=== PATIENT | male | born 1955 | race Caucasian/White ===

== ENCOUNTER 2017-12-24 23:58 | Emergency (ER) | payer BC ==
[~2017-12-24] VITALS: Ht 170.2 cm; Wt 55.3 kg
[2017-12-25 02:10] LABS: CALCIUM 9.1 mg/dL (8.5-10.1); CARBON DIOXIDE 27.9 mmol/L (21-32); CREATININE SERUM 0.8 mg/dL (0.7-1.3); GFR1 > 60 mL/min; GLUCOSE SERUM 117 mg/dL (74-106); POTASSIUM SERUM 3.7 mmol/L (3.5-5.1); SODIUM SERUM 146 mmol/L (136-145)
[2017-12-25 02:15] LABS: microscopic required? NO
[2017-12-25 02:16] LABS: ALBUMIN 3.6 g/dL (3.4-5.0); ALKALINE PHOSPHATASE 53 U/L (46-116); ALT/SGPT 36 U/L (16-63); AST/SGOT 28 U/L (15-37); BILIRUBIN TOTAL 1.04 mg/dL (0.20-1.00); CHLORIDE SERUM 109 mmol/L (98-107); LIPASE 197 IU/L (73-393); TOTAL PROTEIN, SERUM 6.7 g/dL (6.4-8.2)
[2017-12-25 02:28] LABS: urine erythrocyte NEGATIVE (NEGATIVE)
[2017-12-25 02:29] LABS: BASOPHIL % 0.6 % (0-2); PLATELET COUNT 165 x10^3mcL (130-400); RED CELL DISTRIBUTION WIDTH 12.9 % (11.5-14.5)
[2017-12-25 04:22] VITALS: BP 128/74
== END 2017-12-25 04:22 | disposition home or self-care (01) ==
LOC: ED 23:58
PROVIDERS: Emergency Medicine
DX: I10 Essential (primary) hypertension (principal); M79.1 Myalgia; E86.0 Dehydration; R42 Dizziness and giddiness; M79.605 Pain in left leg; M79.604 Pain in right leg; R07.89 Other chest pain; Z88.5 Allergy status to narcotic agent
CPT/HCPCS: 36415; J1885

== ENCOUNTER 2019-08-16 06:10 | Emergency (ER) | payer OTHER ==
[~2019-08-16] VITALS: Ht 170.2 cm; Wt 49.9 kg
[2019-08-16 06:16] VITALS: Ht 170.2 cm; Wt 49.9 kg
[2019-08-16 08:29] VITALS: BP 138/70
== END 2019-08-16 08:29 | disposition home or self-care (01) ==
LOC: ED 06:10
DX: R00.2 Palpitations (principal); R42 Dizziness and giddiness; G20 Parkinson's disease; I10 Essential (primary) hypertension; M54.30 Sciatica, unspecified side; Z98.890 Other specified postprocedural states; Z88.5 Allergy status to narcotic agent

== ENCOUNTER 2020-09-22 18:39 | Emergency (ER) | payer OTHER, MEDICAID ==
[~2020-09-22] VITALS: Ht 172.7 cm; Wt 56.2 kg
[2020-09-22 18:55] VITALS: Ht 172.7 cm; Wt 56.2 kg
[2020-09-22 21:04] VITALS: BP 163/98
== END 2020-09-22 21:04 | disposition home or self-care (01) ==
LOC: ED 18:39
DX: L97.418 Non-pressure chronic ulcer of right heel and midfoot with other specified severity (principal); I10 Essential (primary) hypertension; Z88.5 Allergy status to narcotic agent
CPT/HCPCS: 82962